=== PATIENT | female | born 1950 | race Caucasian/White ===

== ENCOUNTER 2017-12-01 10:57 | Outpatient (CLI) | payer MEDICARE | END 2017-12-01 10:58 | disposition home or self-care (01) | LOC: BICMAMMO 10:57 | PROVIDERS: ATTEND Physician Assistant | DX: Z12.31 Encounter for screening mammogram for malignant neoplasm of breast (principal); Z80.3 Family history of malignant neoplasm of breast | CPT/HCPCS: 77063; 77067 ==

== ENCOUNTER 2018-07-16 11:37 | Emergency (ER) | payer MEDICARE ==
--- NOTE | 2018-07-16 12:05 | RAD ---
FRONTAL RADIOGRAPH CHEST: Date; 07/16/18 COMPARISON: 02/10/13. HISTORY: Chest pain. FINDINGS: No pneumothorax or pleural fluid. No focal consolidation or alveolar edema. Heart and mediastinal con tours are grossly unremarkable. IMPRESSION: No acute findings. POS: [facility]
[2018-07-16 12:17] LABS: #Basophils 0.1 thou/uL (0.0-0.2); #Eosinphils 0.2 thou/uL (0.0-0.7); #Lymphocytes 2.5 thou/uL (1.20-3.40); #Monocytes 0.9 thou/uL (0.11-0.59); #Neutrophils 8.4 thou/uL (1.40-6.50); %Basophils 0.7 % (0.0-1.0); %Eosinophils 1.8 % (0.0-10.0); %Lymphocytes 20.8 % (21.0-51.0); %Neutrophils 69.7 % (42.0-75.0); Hemoglobin 14.4 g/dL (12.0-16.0); Mean Corpuscular HGB CONC 30.7 g/dL (32.0-36.0); Mean Corpuscular Hemoglobin 28.5 pg (27.0-31.0); Mean Corpuscular Volume 92.7 fL (78.0-98.0); Mean Platelet Volume 7.9 fL (7.4-10.4); Platelet Count 280 thou/uL (130-400); RBC Distribution Width 11.4 % (11.5-14.5); Red Blood Cell (RBC) Count 5.05 mill/uL (4.20-5.40); White Blood Cell (WBC) Count 12.1 thou/uL (4.8-10.8)
[2018-07-16 12:46] LABS: ALT (SGPT) 27 U/L (8-55); AST (SGOT) 21 U/L (5-34); Albumin 4.3 g/dL (3.4-4.8); Alkaline Phosphatase 89 U/L (40-150); Anion Gap 15 mmol/L (10-20); BUN (Urea Nitrogen) 16 mg/dL (9.8-20.1); Bilirubin, Total 1.1 mg/dL (0.2-1.2); Calc. Creatinine Clearance 0 mL/min (70-130); Calcium 10.1 mg/dL (7.8-10.44); Carbon Dioxide 23 mmol/L (23-31); Chloride 102 mmol/L (98-107); Estimated GFR-MDRD 75; Globulin 3.6 g/dL (2.4-3.5); Glucose 134 mg/dL (80-115); Potassium 3.9 mmol/L (3.5-5.1); Protein, Total 7.9 g/dL (6.0-8.3); Sodium 136 mmol/L (136-145)
--- NOTE | 2018-07-18 17:36 | EKG ---
Test Reason : CP Blood Pressure : / mmHG Vent. Rate : 075 BPM Atrial Rate : 075 BPM P-R Int : 144 ms QRS Dur : 072 ms QT Int : 372 ms P-R-T Axes : 038 036 067 degrees QTc Int : 415 ms Normal sinus rhythm Nonspecific T wave abnormality Abnormal ECG Confirmed by ALINE BOOKER, SHAYNA ([id number]), editorial manager MARCIAL HOWARD ([id number]) on 07/18/2018 5:35:49 PM Referred By: ALINE Confirmed By:SHAYNA MIRELES MD
--- NOTE | 2018-07-18 17:36 | EKG ---
Test Reason : Blood Pressure : / mmHG Vent. Rate : 083 BPM Atrial Rate : 083 BPM P-R Int : 156 ms QRS Dur : 074 ms QT Int : 362 ms P-R-T Axes : 035 012 039 degrees QTc Int : 425 ms Normal sinus rhythm Nonspecific T wave abnormality Abnormal ECG Confirmed by ALINE BOOKER, SHAYNA ([id number]), editor school photograph MARCIAL HOWARD ([id number]) on 07/18/2018 5:35:53 PM Referred By: Confirmed By:SHAYNA MIRELES MD
== END 2018-07-16 16:00 | disposition home or self-care (01) ==
LOC: ERS 11:37
DX: R07.89 Other chest pain (principal); R09.1 Pleurisy; R05 Cough; R73.03 Prediabetes; E03.9 Hypothyroidism, unspecified; K21.9 Gastro-esophageal reflux disease without esophagitis; E78.5 Hyperlipidemia, unspecified
CPT/HCPCS: 36415; 71045; 80053; 84484; 85025; 93005; 94640; J7620

== ENCOUNTER 2018-07-18 15:08 | Observation (INO) | payer MEDICARE ==
[2018-07-18 16:03] LABS: #Basophils 0.1 thou/uL (0.0-0.2); #Eosinphils 0.3 thou/uL (0.0-0.7); #Lymphocytes 2.5 thou/uL (1.20-3.40); #Monocytes 0.7 thou/uL (0.11-0.59); #Neutrophils 7.1 thou/uL (1.40-6.50); %Basophils 0.7 % (0.0-1.0); %Eosinophils 3.2 % (0.0-10.0); %Lymphocytes 23.1 % (21.0-51.0); %Monocytes 6.8 % (0.0-10.0); %Neutrophils 66.1 % (42.0-75.0); Mean Corpuscular HGB CONC 33.8 g/dL (32.0-36.0); Mean Corpuscular Hemoglobin 30.3 pg (27.0-31.0); Mean Corpuscular Volume 89.7 fL (78.0-98.0); Mean Platelet Volume 7.8 fL (7.4-10.4); Platelet Count 221 thou/uL (130-400); RBC Distribution Width 11.1 % (11.5-14.5); Red Blood Cell (RBC) Count 4.62 mill/uL (4.20-5.40); White Blood Cell (WBC) Count 10.7 thou/uL (4.8-10.8)
[2018-07-18 16:24] LABS: ALT (SGPT) 23 U/L (8-55); AST (SGOT) 21 U/L (5-34); Alkaline Phosphatase 74 U/L (40-150); Anion Gap 16 mmol/L (10-20); BUN (Urea Nitrogen) 14 mg/dL (9.8-20.1); Bilirubin, Total 0.8 mg/dL (0.2-1.2); CK (CPK) 123 U/L (29-168); Calc. Creatinine Clearance 0 mL/min (70-130); Calcium 9.4 mg/dL (7.8-10.44); Carbon Dioxide 21 mmol/L (23-31); Chloride 105 mmol/L (98-107); Estimated GFR-MDRD 80; Globulin 3.2 g/dL (2.4-3.5); Glucose 113 mg/dL (80-115); Potassium 3.8 mmol/L (3.5-5.1); Protein, Total 7.2 g/dL (6.0-8.3); Sodium 138 mmol/L (136-145)
--- NOTE | 2018-07-18 16:36 | RAD ---
TWO VIEWS CHEST: 07/18/18 PROVIDED CLINICAL HISTORY: Chest pain. FINDINGS: Comparison 08/13/2017. Cardiac and mediastinal silhouette is unchanged in appearance. Vascular calcification involves the ao rtic arch. No focal consolidation, pleural fluid or pneumothorax apparent. IMPRESSION: No evidence for an acute cardiopulmonary process. POS: [facility]
[2018-07-18] MEDS ORDERED: Aspirin Chewable 81 MG TAB ONE (16:57)
[2018-07-18] MEDS ORDERED: Nitroglycerin 2% Ointment 1 INCH/1 GM Packet ONE (16:57)
[2018-07-18] MEDS ORDERED: Ondansetron ODT 4 MG TAB SL PRN (17:00)
[2018-07-18] MEDS ORDERED: Acetaminophen 325 MG TAB PO PRN (17:00)
[2018-07-18] MEDS ORDERED: Ondansetron PF 4 MG/2 ML Vial IVP PRN (17:00)
[2018-07-18 19:18] LABS: Troponin I Less than 0.010 ng/mL (< 0.028)
[2018-07-18 19:22] VITALS: BMI 44.1
[2018-07-18] MEDS ORDERED: traMADol HCl 50 MG TAB PO PRN (21:12)
[2018-07-18] MEDS ORDERED: guaiFENesin 200 MG TAB PO PRN (21:19)
[2018-07-18 22:51] LABS: Troponin I Less than 0.010 ng/mL (< 0.028)
--- NOTE | 2018-07-19 02:06 | HP ---
CHIEF COMPLAINT: Left-sided chest pain. HISTORY OF PRESENT ILLNESS: Ms. Ramirez is a 67-year-old woman, who presents today complaining of left-sided chest pain which has been ongoing for the last 2 days. She states she was recently treated for bronchitis and has had a minor cough. Today, the pain began to radiate down her left arm and up the left side of her neck. She also describes a numbness in her upper left arm. 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 The patient is also describing numbness along the entire left lower extremity. She denies experiencing any weakness. Reports a mild throbbing headache which she rates 5/10 in severity. Denies having any injuries. She denies any history of underlying heart disease. REVIEW OF SYSTEMS: The patient denies having any recent fevers, chills, or sweats. She reports having a dry cough and denies any hemoptysis. Denies nausea or vomiting. Denies any abdominal pain or cramping. Has been moving her bowels as normal and denies any urinary symptoms. She has not experienced any episodes of dizziness. Has not had any speech disturbances or visual changes. No facial numbness or drooping. No difficulty swallowing. All other review of systems are negative. PAST MEDICAL HISTORY: 1. Hypothyroidism. 2. Hyperlipidemia. 3. Prediabetic. PAST SURGICAL HISTORY: 1. Previous left breast biopsy. 2. x2. 3. Hernia repair. SOCIAL HISTORY: Denies any alcohol use or tobacco use. Previous IV drug user, but no longer uses any type of drugs. ALLERGIES: 1. AZITHROMYCIN. 2. CODEINE SULFATE. CURRENT MEDICATIONS: 1. Calcium. 2. Centrum Silver. 3. Aspirin. 4. Albuterol. 5. Pravastatin. 6. Levothyroxine. PHYSICAL EXAMINATION: GENERAL: The patient appears well developed, well nourished, is in no acute distress. VITAL SIGNS: Temperature 97.7, pulse 69, respirations 20, O2 saturation 95% on room air, BP 162/74. HEENT: Normocephalic and atraumatic. Pupils are equal, round, and reactive to light. Sclerae are without icterus. Oropharynx is clear. NECK: Supple. No lymphadenopathy. LUNGS: Clear to auscultation bilaterally without any wheezes, rales, or rhonchi. CARDIAC: Regular rate and rhythm. Chest wall tenderness along the left lateral rib cage. ABDOMEN: Soft, nontender, nondistended. Normoactive bowel sounds present. EXTREMITIES: No edema. No calf tenderness. NEUROLOGIC: Alert and oriented x3. Facial movements intact and facial sensation normal. There is a reduced sensation along the left upper and lower extremities. Power 5/5 in upper and lower limbs. No neuro deficits on exam. SKIN: Without rash or jaundice. LABORATORY DATA: White blood count 10.7, hemoglobin 14.9, hematocrit 41.4, platelets 221. Sodium 138, potassium 3.8, BUN 14, creatinine 0.73, GFR 80, glucose 113, calcium 9.4, total bilirubin 0.8, AST 21, ALT 23, alkaline phosphatase 74. CK 123. Troponin negative x2. IMAGING DATA: Chest x-ray without any evidence of acute cardiopulmonary process. Vascular calcification involving aortic arch. IMPRESSION AND PLAN: Ms. Ramirez is a pleasant 67-year-old woman, presenting with left-sided chest pain, who is being admitted for management of the followin. Chest pain, rule out. The pain started earlier today, radiating down her left arm and up the left side of her neck. Troponin x2 negative. Awaiting third troponin. She does have some tenderness in the left shoulder. Chest pain discomfort relieves with heating pad. Echo requested. BNP also requested. The patient did experience associated shortness of breath. Her vital signs are notable for low sats of 95%. She has no underlying pulmonary disease. We will request a D-dimer. If positive, obtain CT angiogram of chest. 2. Left-sided numbness. The lower extremity numbness has developed since she has come in. She reports a throbbing headache, 5/10 severity, but no visual disturbances and no other focal neurology. We will obtain a CT brain. 3. Hypothyroidism. We will resume levothyroxine. We will check TSH. 4. GI prophylaxis. 5. DVT prophylaxis. 6. Full code status. The patient's case was discussed with Dr. Lopes who agrees with plan of care as described above. Job ID: [id number]
[2018-07-19 05:38] LABS: #Basophils 0.1 thou/uL (0.0-0.2); #Eosinphils 0.3 thou/uL (0.0-0.7); #Lymphocytes 2.6 thou/uL (1.20-3.40); #Monocytes 0.7 thou/uL (0.11-0.59); #Neutrophils 5.5 thou/uL (1.40-6.50); %Basophils 0.7 % (0.0-1.0); %Eosinophils 3.1 % (0.0-10.0); %Lymphocytes 28.6 % (21.0-51.0); %Monocytes 7.6 % (0.0-10.0); %Neutrophils 59.9 % (42.0-75.0); Hemoglobin 13.4 g/dL (12.0-16.0); Mean Corpuscular HGB CONC 34.4 g/dL (32.0-36.0); Mean Corpuscular Hemoglobin 30.9 pg (27.0-31.0); Mean Platelet Volume 8.1 fL (7.4-10.4); Platelet Count 219 thou/uL (130-400); RBC Distribution Width 11.1 % (11.5-14.5); Red Blood Cell (RBC) Count 4.32 mill/uL (4.20-5.40); White Blood Cell (WBC) Count 9.1 thou/uL (4.8-10.8)
[2018-07-19 05:59] LABS: Anion Gap 12 mmol/L (10-20); BUN (Urea Nitrogen) 15 mg/dL (9.8-20.1); Calc. Creatinine Clearance 120 mL/min (70-130); Calcium 9.5 mg/dL (7.8-10.44); Carbon Dioxide 27 mmol/L (23-31); Chloride 103 mmol/L (98-107); Estimated GFR-MDRD 78; Glucose 99 mg/dL (80-115); Potassium 3.8 mmol/L (3.5-5.1); Sodium 138 mmol/L (136-145)
[2018-07-19] MEDS ORDERED: Levothyroxine Sodium 125 MCG TAB PO SCH (09:00)
[2018-07-19] MEDS: Famotidine/PF 20 mg/2ml Vial SLOW IVP SCH ×2 (09:10→20:00)
[2018-07-19] MEDS: guaiFENesin ER 600 MG TAB PO SCH ×2 (09:10→20:00)
--- NOTE | 2018-07-19 09:33 | CT ---
HEAD CT WITHOUT CONTRAST: DATE: 07/18/2018. HISTORY: Left arm and left leg numbness. TECHNIQUE: Axial CT imaging at 5 mm intervals from the vertex through the skull base without contrast. FINDINGS: The imaged paranasal sinuses and mastoid air cells are well aerated. There is no displaced calvarial fracture. There is atherosclerotic calcification of the cavernous carotid arteries. No intracranial hemorrhage, midline shift, mass effect, or ventricular enlargement. If there is clin ical concern for acute infraction, brain MRI is advised. If there is concern for intra-arterial thro mbus, CT angiogram suggested. IMPRESSION: No acute findings - no intracranial hemorrhage. POS: [facility]
[2018-07-19] MEDS ORDERED: ADENOSINE 60 MG/20 ML VIAL ONE (11:16)
--- NOTE | 2018-07-19 14:38 | NM ---
NUCLEAR MEDICINE CARDIAC STRESS WITH EF AND WALL MOTION: HISTORY: Chest pain. Increased cholesterol. COMPARISON: None. TECHNIQUE: Stress only imaging is performed. The patient was administered 28.60 mCi of Technetium 99m sestamibi intravenously. FINDINGS: Homogeneous distribution of the radiotracer in the left ventricle. End-diastolic volume is 86 mL. End-systolic volume is 31 mL. CARDIAC GATING: Normal motion and thickening. 64% ejection fraction. IMPRESSION: 1. Homogeneous distribution of radiotracer. 2. A 64% ejection fraction. POS: [facility]
[2018-07-19 16:43] VITALS: TEMP 98.1
[2018-07-19] MEDS ORDERED: traMADol HCl 50 MG TAB PO SCH (17:45)
[2018-07-19] MEDS ORDERED: Lidocaine 5% Patch TD SCH (18:30)
[2018-07-19 20:19] VITALS: BP 140/68
[2018-07-19] MEDS ORDERED: Atorvastatin Calcium 10 MG TAB PO SCH (21:00)
[2018-07-19] MEDS ORDERED: Aspirin 81 mg Enteric Coated Tablet PO SCH (21:00)
--- NOTE | 2018-07-19 21:48 | DIS ---
DATE OF ADMISSION: 07/18/2018 DATE OF DISCHARGE: 07/19/2018 PRIMARY CARE PROVIDER: Emilia Bhatia. DISCHARGE DIAGNOSES: 1. Chest pain. 2. Likely musculoskeletal etiology for chest pain. CONDITION OF PATIENT ON THE DAY OF DISCHARGE: Stable. I assessed Ms. Ramirez on the day of discharge. She reports that she did not have any left-sided numbness, which she had complained about at the time of admission. She also reports that chest pain was better. Vital signs are stable. S1 and S2 are heard, regular. Lungs are clear to auscultation bilaterally. She has reproducible left chest wall pain. DISCHARGE MEDICATIONS: No change was made to her pre-admission home medications as dictated by Amina Marta on history and physical note dated July 19, 2018. HOSPITAL COURSE: Ms. Ramirez is a pleasant 67-year-old lady, who was admitted to [facility] on July 18, 2018. She complained of left-sided chest pain as well as left arm and left leg numbness. CT scan of the brain, noncontrast, did not show any acute findings. She had D-dimer that was less than 0.27. She also had nuclear stress test, which showed homogeneous distribution of radiotracer, with 64% left ventricular ejection fraction. She is advised to follow up with her primary care provider as outpatient for further management. LABORATORY DATA: On the day of discharge, Ms. Ramirez has white count 9100, hemoglobin 13.4, and platelet count 219,000. Normal electrolytes and normal creatinine. Her BNP during this admission was 20. She had troponin I that was negative x3. DISCHARGE DESTINATION: Home. Job ID: [id number]
[2018-07-20] MEDS ORDERED: Lidocaine Patch Removal 1 EACH TOP SCH (06:30)
== END 2018-07-19 20:15 | disposition home or self-care (01) ==
LOC: ERS 15:08 → 2SW 19:04
PROVIDERS: ADMIT Internal Medicine; ATTEND Internal Medicine
DX: R07.89 Other chest pain (principal); E03.9 Hypothyroidism, unspecified; E78.5 Hyperlipidemia, unspecified; R73.03 Prediabetes; Z79.82 Long term (current) use of aspirin; Z79.899 Other long term (current) drug therapy; Z88.1 Allergy status to other antibiotic agents; Z88.5 Allergy status to narcotic agent; Z88.8 Allergy status to other drugs, medicaments and biological substances
CPT/HCPCS: 70450; 71046; 78452; 80048; 80053; 82550; 83880; 84484 ×2; 85025 ×2; 85379; 93005; 93017; 93306; 96374; 96376; 97139; 99285; A9500; G0378 ×2; 36415; J0153; S0028

== ENCOUNTER 2018-12-02 09:42 | Outpatient (CLI) | payer MEDICARE ==
--- NOTE | 2018-12-02 10:28 | MMO ---
Bilateral MAMMO Bilat Screen [facility]DI[facility]PERLA. CLINICAL HISTORY: Patient is 68 years old and is seen for screening. The patient has no personal history of cancer. The patient has a history of left Excisional Biopsy at age 31 - benign. VIEWS: The views performed were: bilateral craniocaudal with tomosynthesis and bilateral mediolateral oblique with tomosynthesis. FILMS COMPARED: The present examination has been compared to prior imaging studies performed at [facility] on 11/04/2014, 12/08/2015, 11/27/2016 and 12/01/2017. MAMMOGRAM FINDINGS: There are scattered fibroglandular densities. There are no suspicious masses, suspicious calcifications, or new areas of architectural distortion. IMPRESSION: THERE IS NO MAMMOGRAPHIC EVIDENCE OF MALIGNANCY. A ROUTINE FOLLOW-UP MAMMOGRAM IN 1 YEAR IS RECOMMENDED. THE RESULTS OF THIS EXAM WERE SENT TO THE PATIENT. ACR BI-RADS Category 1 - Negative MAMMOGRAPHY NOTE: 1. A negative mammogram report should not delay a biopsy if a dominant of clinically suspicious mass is present. 2. Approximately 10% to 15% of breast cancers are not detected by mammography. 3. Adenosis and dense breasts may obscure an underlying neoplasm. Reported by: Saroj COMBS Electonically Signed: [id number]
== END 2018-12-02 09:43 | disposition home or self-care (01) ==
LOC: BICMAMMO 09:42
PROVIDERS: ATTEND Physician Assistant
DX: Z12.31 Encounter for screening mammogram for malignant neoplasm of breast (principal)
CPT/HCPCS: 77063; 77067

== ENCOUNTER 2020-01-14 10:13 | Outpatient (CLI) | payer MEDICARE ==
[~2020-01-14 10:13] MED LIST: Magnevist 469MG/ML 20 ML VIAL ONE
--- NOTE | 2020-01-14 11:55 | RAD ---
3 views of the left ankle: 01/14/2020 COMPARISON: None HISTORY: Pain and swelling, no history of injury FINDINGS: There is enthesophyte formation at the origin of the plantar aponeurosis. Mild dorsal degen erative change noted within the mid foot on the lateral view with adjacent mild dorsal soft tissue swelling. No acute fracture or dislocation. IMPRESSION: Dorsal soft tissue swelling and midfoot degenerative change with no acute fracture or dis location.
--- NOTE | 2020-01-14 12:04 | MRI ---
MR the lumbar spine with and without contrast: 01/14/2020 History: Back pain, right-sided radiculopathy, lifting injury COMPARISON: None. TECHNIQUE: Multiplanar multisequence MR images were obtained of lumbar spine with and without IV cont rast FINDINGS: On the basis of 5 lumbar type vertebral bodies, conus medullaris terminates at theL1 level. STIR imaging demonstrates no focal area of osseous marrow edema. T12-L1:Mild bilateral facet hypertrophy. Intervertebral disc height and signal intensity within leny l limits. No significant central canal or neural foraminal stenosis. L1-2:Disc desiccation with mild disc space narrowing. Mild bilateral facet hypertrophy. Mild disc bul ge with no central canal or neural foraminal stenosis. Old central L2 vertebral body fracture present with moderate loss of vertebral body height centrally. L2-3:Mild bilateral facet hypertrophy with disc space narrowing and disc desiccation. No central floresita l or neural foraminal stenosis. L3-4:Mild bilateral facet hypertrophy and hypertrophy of the ligamentum flavum with disc desiccation. Mild left neural foraminal stenosis. No central canal or right neural foraminal stenosis. L4-5:Bilateral facet hypertrophy and hypertrophy of the ligamentum flavum, right greater than left. T here is disc desiccation. No central canal stenosis. Questionable minimal right neural foraminal stenosis. No left neural foraminal stenosis. L5-S1:There is disc space narrowing with disc desiccation. Mild anterolisthesis measures 6 mm. Bilate ral L5 pars defects are present. There is associated bilateral facet hypertrophy, right greater than left. There is moderate right and mild left neural foraminal stenosis. No significant central ca nal stenosis. Image retroperitoneal structures demonstratea small T2 hyperintensity within the midpole of the left kidney, likely representing a small cyst. Postcontrast imaging demonstrates no abnormal enhancement involving the imaged osseous structures, th e intervertebral discs, or the contents of the thecal sac. IMPRESSION: Multilevel degenerative change within the lumbar spine as detailed above.
== END 2020-01-14 10:14 | disposition home or self-care (01) ==
LOC: BICMRI 10:13
PROVIDERS: ATTEND Physician Assistant
DX: M25.572 Pain in left ankle and joints of left foot (principal); M54.9 Dorsalgia, unspecified; M79.89 Other specified soft tissue disorders; M19.072 Primary osteoarthritis, left ankle and foot; M47.816 Spondylosis without myelopathy or radiculopathy, lumbar region
CPT/HCPCS: 72158; 82565; A9579

== ENCOUNTER 2020-01-19 13:12 | Observation (INO) | payer MEDICARE, OTHER ==
--- NOTE | 2020-01-19 13:41 | PDOC.HHP ---
Hospitalist HPI - History of Present Illness Chest pain History of Present Illness: PCP: Emilia Bhatia The patient is a 69-year-old female with a past medical history significant for hypertension, hyperlipidemia, diabetes type 2, smoking, GERD and hypothyroidism that presents to the emergency department as a transfer from [facility] for the above complaint. Patient reports developing chest pain this morning approximately 2 AM. Reports that it woke her up in her sleep. Located left chest radiating to the left upper extremity. Describes as chest pressure. No exacerbating or alleviating factors. Patient reports some associated shortness of breath. Denies recent cough or wheezing. No history of COPD/asthma. No history of DVT/PE. Denies any illicit drug use. Denies heart palpitations, lower extremity swelling, orthopnea. Denies abdominal pain, nausea, vomiting, diarrhea. Denies any urinary symptoms. Denies fever or any known sick contacts. [facility], EKG showed normal sinus rhythm with some T wave flattening, no ST elevations. Chest x-ray negative for any acute process. She was given full dose aspirin per EMS. She was given sublingual nitro x2 and Nitropaste with some relief of symptoms. She was also given a GI cocktail, morphine and Toradol. She was then transferred to the [facility] location. ED Course: VITAL SIGNS FriJan 19, 2020 13:18 COLT Quiroga Tammy BP: 104/61, MAP: 75, Pulse: 67, Resp: 14, Pain: 6, O2 sat: 95 on (Room Air), Time: 01/19/2020 13:18. Hospitalist ROS - Review of Systems Constitutional: denies: fever, chills Respiratory: reports: shortness of breath. denies: cough, SOB with excertion Cardiovascular: reports: chest pain. denies: palpitations, edema, light headedness Gastrointestinal: denies: nausea, vomiting, abdominal pain, diarrhea Genitourinary: denies: dysuria, hematuria Neurological: denies: weakness, incoordination, change in speech, confusion All other systems reviewed; all pertinent +/- noted in HPI/Subj - Medication Medications: aspirin oral FriJan 19, 2020 13:33 COLT Quiroga Tammy TABLET : Strength - 81 mg : ORAL Patient Dose: 81 mg Oral once a day. pravastatin FriJan 19, 2020 13:33 COLT Quiroga Tammy TABLET : Strength - 40 mg : ORAL Patient Dose: 40 mg Oral once a day. glimepiride FriJan 19, 2020 13:34 COLT Quiroga, Deneen tablet : Strength - 1 mg : ORAL Patient Dose: 1 mg Oral once a day. hydroCHLOROthiazide FriJan 19, 2020 13:34 COLT Quiroga, Deneen capsule : Strength - 12.5 mg : ORAL Patient Dose: 12.5 mg Oral once a day. omeprazole FriJan 19, 2020 13:35 COLT Quiroga, Deneen capsule,delayed release(DR/EC) : Strength - 20 mg : ORAL Patient Dose: 40 mg p.o. daily Levothyroxine 125 mcg p.o. every morning Allergies: Azithromycin, metformin, codeine sulfate,Symbicort Hospitalist History - Past Medical History Source: patient, RN notes reviewed Cardiac: reports: HTN, Hyperlipidemia Pulmonary: denies: COPD Gastrointestinal: reports: GERD Endocrine: reports: Diabetes (Type II, [id number]), Hypothyroidism - Past Surgical History Past Surgical History: reports: Breast Biopsy (Left), (X2), Hernia Repair - Family History Family History: reports: cerebrovascular accident (Father), diabetes mellitus (Sibling) - Social History Smoking Status: Never smoker (Quit 20 years ago) Tobacco Type: cigarettes Alcohol: reports: None Drugs: reports: none Living Situation: With Family Occupation: Retired Activity level: independent ambulation - Exam General Appearance: NAD, awake alert Eye: anicteric sclera ENT: normocephalic atraumatic Neck: supple, symmetric, no JVD Heart: RRR, no murmur, no gallops, no rubs, normal peripheral pulses Respiratory: CTAB, no wheezes, no rales, no ronchi, normal chest expansion, no tachypnea Gastrointestinal: soft, non-tender, normal bowel sounds, no bruit, no guarding, no rigidity Extremities: no cyanosis, no edema Skin: no rashes Neurological: no focal deficits Musculoskeletal: normal tone, normal strength Psychiatric: normal affect, A&O x 3 Hospitalist Results - Labs Lab results: Laboratory Tests 01/19/20 01/19/20 01/19/20 09:50 09:50 09:50 WBC 9.6 Hgb 13.7 Hct 43.4 Plt Count 223 Sodium 139 Potassium 4.0 BUN 17 Creatinine 0.75 Glucose 118 H Calcium 9.5 Total Bilirubin 0.8 AST 30 ALT 29 Alkaline Phosphatase 62 Creatine Kinase 139 Troponin I 0.011 Albumin 4.2 - EKG Interpretation EKG: [facility]: 12 lead EKG interpreted by Emergency Department Physician at time of study, 12 lead EKG shows normal sinus rhythm, Rate (beats per minute): 70, with no ectopics, Conduction normal, ST segments normal, T waves normal, Lawrence normal. - Radiology Interpretation Chest x-ray Status: report reviewed by me Additional Comment: no acute cardiopulmonary process. Hospitalist H&P A/P - Problem (1) Chest pain Code(s): R07.9 - CHEST PAIN, UNSPECIFIED Status: Acute (2) Hypertension Code(s): I10 - ESSENTIAL (PRIMARY) HYPERTENSION Status: Acute (3) Hyperlipidemia Code(s): E78.5 - HYPERLIPIDEMIA, UNSPECIFIED Status: Acute (4) DM type 2 (diabetes mellitus, type 2) Status: Acute (5) Hypothyroidism Code(s): E03.9 - HYPOTHYROIDISM, UNSPECIFIED Status: Acute (6) GERD (gastroesophageal reflux disease) Code(s): K21.9 - GASTRO-ESOPHAGEAL REFLUX DISEASE WITHOUT ESOPHAGITIS Status: Acute - Plan Plan: 69/F with cardiovascular risk factors presents as a transfer for chest pain. Admit to telemetry floor, observation status. Expected length of stay less than 2 midnights. EKG normal sinus rhythm, no ST elevation. CXR negative for acute process. Troponin 0.011 Given full dose aspirin, Nitropaste, nitro SL, morphine, GI cocktail, Toradol. #Chest pain Heart score 4. Wells PE score 0. Trend troponins, check TSH, FLP, mag, BNP, UA. Continue aspirin, Nitropaste and start high intensity statin. 08/15echo EF 60-65%, mild MR, TR 20NM MUSIC ARTIST unremarkable. N.p.o. midnight. NM MUSIC ARTIST in a.m. #Hypertension Patient presented normotensive. Takes HCTZ, will hold for now. Continue to monitor BP. #Hyperlipidemia Home dose is pravastatin 40 mg. Start high intensity statin. Check FLP. #DM type II Presented BG 115 Has allergy to metformin. Takes glimepiride 1 mg at home. Hold glimepiride for now. Start moderate ISS, AC/HS checks #Hypothyroidism Check TSH level. Restart home dose levothyroxine and 25 mg every morning. #GERD Home dose omeprazole 40 mg. Start Protonix 40 mg daily. SCDs for DVT prophylaxis. Protonix for GI prophylaxis. Full code. Discussed case with Dr. Wesley.
[2020-01-19] MEDS ORDERED: Nitroglycerin 0.4 MG TAB (25 Tab Bottle) SL PRN (14:04)
[2020-01-19] MEDS ORDERED: HumaLOG 300 UNITS/3 ML VIAL SC PRN ×2 (14:08)
[2020-01-19] MEDS ORDERED: Dextrose 5% in Water 1,000 ML IV PRN (14:08)
[2020-01-19] MEDS ORDERED: Dextrose 50% Abboject 50 ML SYRINGE SLOW IVP PRN (14:08)
[2020-01-19] MEDS ORDERED: Ondansetron ODT 4 MG TAB PO PRN (14:09)
[2020-01-19] MEDS ORDERED: Senokot S 8.6-50 MG TAB PO PRN (14:09)
[2020-01-19] MEDS ORDERED: Ondansetron PF 4 MG/2 ML Vial IVP PRN (14:09)
[2020-01-19] MEDS ORDERED: Acetaminophen 650 MG Suppository PR PRN (14:09)
[2020-01-19] MEDS ORDERED: Calcium Carbonate 500 MG ChewTAB PO PRN (14:09)
[2020-01-19] MEDS ORDERED: Acetaminophen 325 MG TAB PO PRN (14:09)
[2020-01-19] MEDS ORDERED: Sodium Chloride 0.9% 1,000 ML IV SCH (14:15)
[2020-01-19 14:49] LABS: Troponin I Less than 0.010 ng/mL (< 0.028)
[2020-01-19 17:01] VITALS: BMI 45.4
[2020-01-19] MEDS: Morphine 2 MG/ML VIAL SLOW IVP PRN (17:13)
[2020-01-19 17:18] LABS: Troponin I 0.016 ng/mL (< 0.028)
[2020-01-19] MEDS ORDERED: Atorvastatin Calcium 10 MG TAB PO SCH (21:00)
[2020-01-19] MEDS: Nitroglycerin 2% Ointment 1 INCH/1 GM Packet TOP SCH (23:59)
[2020-01-20] MEDS: Morphine 2 MG/ML VIAL SLOW IVP PRN ×2 (01:49→09:41)
[2020-01-20 04:15] LABS: Bilirubin Negative (Negative); Blood, Urine Negative (Negative); Clarity Clear (Clear); Glucose, Urine (Dipstick) Normal (Negative); Ketone, Urine Negative (Negative); Leukocyte Negative Leu/uL (Negative); Nitrite Negative (Negative); Protein, Urine (Dipstick) 10 mg/dL (Neg-Trace); RBC/HPF 0-3 HPF (0-3); Specific Gravity, Urine 1.033 (1.002-1.036); Urobilinogen Normal mg/dL (Less than 2); pH, Urine 5.5 (5.0-9.0)
[2020-01-20 04:25] LABS: Mucous/LPF Rare LPF (<2+); WBC/HPF 0-3 HPF (0-3); Yeast-Budding Rare HPF (None Seen)
[2020-01-20 04:26] LABS: Bacteria/HPF 1+ HPF (None Seen)
[2020-01-20] MEDS: Nitroglycerin 2% Ointment 1 INCH/1 GM Packet TOP SCH ×2 (05:02→15:27)
[2020-01-20 05:03] LABS: #Basophils 0.1 thou/uL (0.0-0.2); #Eosinphils 0.3 thou/uL (0.0-0.7); #Lymphocytes 2.6 thou/uL (1.20-3.40); #Monocytes 0.9 thou/uL (0.11-0.59); #Neutrophils 4.9 thou/uL (1.40-6.50); %Basophils 0.9 % (0.0-1.0); %Eosinophils 3.8 % (0.0-10.0); %Lymphocytes 29.4 % (21.0-51.0); %Monocytes 9.8 % (0.0-10.0); %Neutrophils 56.1 % (42.0-75.0); Hemoglobin 12.9 g/dL (12.0-16.0); Mean Corpuscular HGB CONC 33.2 g/dL (32.0-36.0); Mean Corpuscular Hemoglobin 30.6 pg (27.0-31.0); Mean Corpuscular Volume 92.3 fL (78.0-98.0); Mean Platelet Volume 8.3 fL (7.4-10.4); Platelet Count 182 thou/uL (130-400); RBC Distribution Width 11.2 % (11.5-14.5); Red Blood Cell (RBC) Count 4.19 mill/uL (4.20-5.40); White Blood Cell (WBC) Count 8.7 thou/uL (4.8-10.8)
[2020-01-20 05:29] LABS: Anion Gap 14 mmol/L (10-20); BUN (Urea Nitrogen) 23 mg/dL (9.8-20.1); Calc. Creatinine Clearance 125 mL/min (70-130); Calcium 8.8 mg/dL (7.8-10.44); Carbon Dioxide 24 mmol/L (23-31); Cardiac Risk 3.5 (Less than 4.5); Chloride 106 mmol/L (98-107); Cholesterol 169 mg/dl (< 200 Desired); Estimated GFR-MDRD 82; Glucose 115 mg/dL (80-115); HDL Cholesterol 48 mg/dL (>60 Neg Risk); LDL Cholesterol, Calculated 91 mg/dL; Potassium 4.2 mmol/L (3.5-5.1); Sodium 140 mmol/L (136-145); Triglycerides 152 mg/dL (Less than 150)
[2020-01-20] MEDS ORDERED: Levothyroxine Sodium 125 MCG TAB PO SCH (06:00)
[2020-01-20 08:37] VITALS: TEMP 98.7
[2020-01-20] MEDS ORDERED: Aspirin 81 mg Enteric Coated Tablet PO SCH (09:00)
[2020-01-20] MEDS ORDERED: Regadenoson 0.4 MG/5 ML SYRINGE ONE (09:18)
[2020-01-20 12:10] LABS: SARS-CoV-2 MS2 Positive; SARS-CoV-2 N Gene Negative; SARS-CoV-2 S Gene Negative; SARS-CoV-2 by NAA Not Detected (NotDetected); SARS-CoV-2 orf1ab Negative
--- NOTE | 2020-01-20 15:25 | NM ---
EXAM: NM Cardiac Stress W EF WF PROVIDED CLINICAL HISTORY: Chest pain COMPARISON: None FINDINGS: This examination was performed as a stress only myocardial perfusion study after the administration o f Lexiscan IV There is normal uptake of radiotracer seen within the left ventricular myocardium on the stress acqui sition. No significant focal defect is seen. Gated images demonstrate normal ventricular wall motion and wall thickening. Calculated left ventricular ejection fraction is 78%. IMPRESSION: 1. Normal uptake of radiotracer left ventricular myocardium without findings to suggest a significant area of ischemia. 2. Normal LV function with normal LVEF of 78%.
[2020-01-20 17:35] VITALS: BP 151/68
--- NOTE | 2020-01-21 07:33 | DIS ---
DATE OF ADMISSION: 01/19/2020 DATE OF DISCHARGE: 01/20/2020 DISCHARGE DIAGNOSES: 1. Chest pain, acute coronary syndrome ruled out. 2. Hypertension. 3. Hyperlipidemia. 4. Diabetes mellitus type 2. 5. Hypothyroidism. 6. Gastroesophageal reflux disease. DISCHARGE MEDICATIONS: Those are unchanged from the patient's home medicines. HISTORY OF PRESENT ILLNESS AND HOSPITAL COURSE: The patient is a 69-year-old female with past medical history of hypertension, hyperlipidemia, diabetes mellitus type 2, smoking, GERD, who presented to the emergency department with complaints of chest pain. The patient was placed in observation. Serial troponins were unremarkable. EKG did not show any ST elevations. A stress test was performed, which did not show any evidence of reversible ischemia. EF was estimated to be 78%. Job ID: [id number]
--- NOTE | 2020-01-23 13:06 | EKG ---
Test Reason : Blood Pressure : / mmHG Vent. Rate : 068 BPM Atrial Rate : 068 BPM P-R Int : 164 ms QRS Dur : 072 ms QT Int : 426 ms P-R-T Axes : 039 046 054 degrees QTc Int : 452 ms Normal sinus rhythm Nonspecific T wave abnormality Abnormal ECG Confirmed by MONTSERRAT ADAM MD ([id number]) on 01/23/2020 1:05:44 PM Referred By: NELL PARK Confirmed By:MONTSERRAT ADAM MD
== END 2020-01-20 19:18 | disposition home or self-care (01) ==
LOC: ERS 13:12 → 2SW 13:37
PROVIDERS: ADMIT Internal Medicine; ATTEND Internal Medicine
DX: R07.89 Other chest pain (principal); I10 Essential (primary) hypertension; E78.5 Hyperlipidemia, unspecified; E11.9 Type 2 diabetes mellitus without complications; E03.9 Hypothyroidism, unspecified; K21.9 Gastro-esophageal reflux disease without esophagitis; J44.9 Chronic obstructive pulmonary disease, unspecified; Z87.891 Personal history of nicotine dependence; Z79.82 Long term (current) use of aspirin; Z79.84 Long term (current) use of oral hypoglycemic drugs; Z79.899 Other long term (current) drug therapy; Z88.1 Allergy status to other antibiotic agents; Z88.5 Allergy status to narcotic agent; Z88.8 Allergy status to other drugs, medicaments and biological substances; Z20.828 Contact with and (suspected) exposure to other viral communicable diseases
CPT/HCPCS: 78452; 80048; 80061; 81001; 82962; 83735; 83880; 84443; 84484; 85025; 93005 ×2; 93017; 94760; 99285; A9500; J2270 ×2; U0003; 36415; 36416; 87635; 93010; 96374; 96376; G0378; J2785

== ENCOUNTER 2020-02-17 08:01 | Outpatient (CLI) | payer MEDICARE, OTHER ==
[2020-02-18 10:59] LABS: SARS-CoV-2 MS2 Positive; SARS-CoV-2 N Gene Negative; SARS-CoV-2 S Gene Negative; SARS-CoV-2 by NAA Not Detected (NotDetected); SARS-CoV-2 orf1ab Negative
== END 2020-02-17 08:02 | disposition home or self-care (01) ==
LOC: LABBT 08:01
PROVIDERS: ATTEND Internal Medicine
DX: Z20.828 Contact with and (suspected) exposure to other viral communicable diseases (principal)
CPT/HCPCS: 87635; U0003

== ENCOUNTER 2020-02-22 06:05 | Day surgery (SDC) | payer MEDICARE ==
[2020-02-21 13:32] VITALS: BMI 46.4
[2020-02-22] MEDS ORDERED: Lidocaine 1% PF 5 ML VIAL ONE (08:44)
[2020-02-22] MEDS ORDERED: PROPOFOL 200 MG/20 ML VIAL ONE (08:44)
--- NOTE | 2020-02-22 10:39 | OP ---
DATE OF PROCEDURE: 02/22/2020 PROCEDURES PERFORMED: Esophagogastroduodenoscopy with dilation and colonoscopy with polypectomy. INDICATION FOR PROCEDURE: Dysphagia, adenomatous polyps of the colon, and incomplete evacuation of bowels. DESCRIPTION OF PROCEDURE: After the risks and benefits of the procedures were explained to the patient including risks of bleeding, infection, perforation, reactions to anesthesia, aspiration, and/or pain, informed consent was obtained. The patient was then taken to the endoscopy suite, where she was maneuvered into the left lateral decubitus position, followed by introduction of deep sedation via propofol and anesthesia support. Once adequate sedation was achieved, the standard gastroscope was introduced into the mouth with intubation of the esophagus, stomach, and the proximal small intestines with the findings listed below. The patient tolerated this portion of the procedure well with no immediate perioperative complications. Upon completion of this portion of the procedure, all equipment was removed from the patient and the bed was rotated 180 degrees in anticipation of the colonoscopy. A digital rectal examination was performed followed by introduction of the standard colonoscope, which was advanced to the terminal ileum with some difficulty due to tortuosity of the colon and diverticular disease. The patient tolerated the procedure well with no immediate perioperative complications. On conclusion of the procedure, all equipment was removed from the patient and she was transferred to Day Stay in satisfactory condition. EGD FINDINGS: Esophagus: Normal-appearing mucosa was seen in the proximal and mid esophagus; however, a small esophageal stricture was seen in the distal esophagus at approximately 30 to 31 cm past the incisors. It was easily traversed with the standard gastroscope and there was no evidence of associated erosions, ulcerations, or mass lesions. Given her history of dysphagia, this stricture was then dilated to a maximum diameter of 18 mm using a TTS CRE esophageal balloon. A small mucosal rent was seen in the post dilation. No evidence of perforation. The diaphragmatic pinch was seen at 34 cm while the gastroesophageal junction was seen at 31 cm denoting a 3 cm hiatal hernia. Stomach: Slightly nodular mucosa was seen in the gastric cardia, fundus, body and extending into the greater curvature without any other associated abnormalities. Given the high likelihood that was of being due to PPI effect, no biopsies were taken. Otherwise, normal-appearing mucosa was seen in these regions in addition to the incisura and antrum. A hiatal hernia was seen on gastric retroflexion. Duodenum: Normal-appearing mucosa was seen in both the duodenal bulb and second portion of the duodenum. There was no evidence of erosions, ulcerations, mass lesions, or active/recent bleeding. IMPRESSION: 1. A 3 cm hiatal hernia in the distal esophagus. 2. Mild esophageal stricture seen at 31 cm, status post dilation to 18 mm. 3. Slightly nodular appearing mucosa seen in the proximal stomach consistent with PPI effect. COLONOSCOPY FINDINGS: Digital rectal exam: Large perianal skin tags/external hemorrhoids were seen on external examination. No masses were palpated nor was there any evidence of rectal bleeding. Colon findings: Normal-appearing mucosa was seen within the terminal ileum as well as at the ileocecal valve and appendiceal orifice. Normal-appearing mucosa was then also seen in the cecum; however, three polyps measuring 3 to 5 mm in size were seen in the ascending colon and completely removed with cold snare polypectomy. Two additional polyps, measuring 4 to 8 mm were seen in the transverse colon and removed completely with a combination of cold snare and hot snare polypectomies. They were retrieved and placed in a specimen jar for further evaluation. Scattered diverticula were seen in the ascending, transverse, descending, and sigmoid colons with no other associated abnormalities. Normal-appearing mucosa was then seen in the descending colon as well. However, mild luminal narrowing was seen in the sigmoid colon secondary to scar tissue deposition from diverticular disease. [id number] difficulty was experienced in traversing this region. A 3 mm polyp was then seen in the rectum and completely removed with cold snare polypectomy. It was retrieved and placed in a specimen jar for further evaluation. Small to medium-sized internal hemorrhoids were seen on rectal retroflexion. IMPRESSION: 1. Three 3 to 5 mm ascending colon polyp status post cold snare polypectomy. 2. Two 4 to 8 mm polyps seen in the transverse colon status post cold snare and hot snare polypectomy. 3. [id number] pancolonic diverticulosis. 4. Mild luminal narrowing of the sigmoid colon secondary to diverticulosis. 5. A 3 mm rectal polyp status post cold snare polypectomy. 6. Internal and external hemorrhoids. RECOMMENDATIONS: 1. Would follow up on the biopsy/polypectomy results with repeat colonoscopy interval based on pathology results. 2. Would place the patient on a higher fiber diet given the presence of hemorrhoids and diverticulosis. 3. Would continue current medications. 4. Would recommend a liquid diet for the next 24 hours, then advanced the diet as tolerated. 5. Would have the patient follow up in the GI clinic in 3 weeks as part of followup of her irregular bowel habits and dysphagia. Job ID: [id number]
== END 2020-02-22 10:40 | disposition home or self-care (01) ==
LOC: SDC 06:05
PROVIDERS: ATTEND Internal Medicine
PROC: 0D758ZZ Dilation of Esophagus, Via Natural or Artificial Opening Endoscopic (ICD-10-PCS; principal; 2020-02-22)
PROC: 0DBK8ZX Excision of Ascending Colon, Via Natural or Artificial Opening Endoscopic, Diagnostic (ICD-10-PCS; 2020-02-22)
PROC: 0DBL8ZX Excision of Transverse Colon, Via Natural or Artificial Opening Endoscopic, Diagnostic (ICD-10-PCS; 2020-02-22)
PROC: 0DBP8ZX Excision of Rectum, Via Natural or Artificial Opening Endoscopic, Diagnostic (ICD-10-PCS; 2020-02-22)
DX: K22.2 Esophageal obstruction (principal); D12.2 Benign neoplasm of ascending colon; D12.3 Benign neoplasm of transverse colon; K62.1 Rectal polyp; K44.9 Diaphragmatic hernia without obstruction or gangrene; K57.30 Diverticulosis of large intestine without perforation or abscess without bleeding; K64.4 Residual hemorrhoidal skin tags; K64.8 Other hemorrhoids; K21.00 Gastro-esophageal reflux disease with esophagitis, without bleeding; E11.9 Type 2 diabetes mellitus without complications; E78.00 Pure hypercholesterolemia, unspecified; E07.9 Disorder of thyroid, unspecified; E66.01 Morbid (severe) obesity due to excess calories; Z68.41 Body mass index [BMI] 40.0-44.9, adult; Z86.010 Personal history of colon polyps; Z87.891 Personal history of nicotine dependence; Z79.82 Long term (current) use of aspirin; Z79.84 Long term (current) use of oral hypoglycemic drugs; Z79.899 Other long term (current) drug therapy; Z88.1 Allergy status to other antibiotic agents; Z88.5 Allergy status to narcotic agent; Z88.8 Allergy status to other drugs, medicaments and biological substances; Z91.040 Latex allergy status
CPT/HCPCS: 88305; J2704

== ENCOUNTER 2021-01-09 13:04 | Observation (INO) | payer MEDICARE ==
[2021-01-09] MEDS ORDERED: Ondansetron ODT 4 MG TAB PO PRN (15:19)
[2021-01-09] MEDS ORDERED: Dextrose 5% in Water 1,000 ML IV PRN (15:19)
[2021-01-09] MEDS ORDERED: Nitroglycerin 0.4 MG TAB (25 Tab Bottle) SL PRN (15:19)
[2021-01-09] MEDS ORDERED: HumaLOG 300 UNITS/3 ML VIAL SC PRN ×2 (15:19→17:01)
[2021-01-09] MEDS ORDERED: Senokot S 8.6-50 MG TAB PO PRN (15:19)
[2021-01-09] MEDS ORDERED: Ondansetron PF 4 MG/2 ML Vial IVP PRN (15:19)
[2021-01-09] MEDS ORDERED: Dextrose 50% Abboject 50 ML SYRINGE SLOW IVP PRN (15:19)
[2021-01-09 15:34] VITALS: BMI 45.7
[2021-01-09] MEDS ORDERED: Acetaminophen 325 MG TAB PO PRN (17:01)
[2021-01-09] MEDS ORDERED: hydrALAZINE 20 MG/ML VIAL SLOW IVP PRN (20:07)
[2021-01-09] MEDS ORDERED: hydrALAZINE 25 MG TAB PO PRN (20:07)
[2021-01-09] MEDS ORDERED: Aspirin 325 MG TAB PO SCH (20:30)
[2021-01-09 20:54] LABS: Troponin I Less than 0.010 ng/mL (< 0.028)
[2021-01-09] MEDS ORDERED: Enoxaparin Sodium 40 MG/0.4 ML SYRINGE SC SCH (21:00)
[2021-01-09 23:34] LABS: Troponin I Less than 0.010 ng/mL (< 0.028)
[2021-01-10 05:00] LABS: #Basophils 0.1 thou/uL (0.0-0.2); #Eosinphils 0.3 thou/uL (0.0-0.7); #Lymphocytes 2.3 thou/uL (1.20-3.40); #Monocytes 0.8 thou/uL (0.11-0.59); #Neutrophils 4.8 thou/uL (1.40-6.50); %Basophils 0.9 % (0.0-1.0); %Eosinophils 3.9 % (0.0-10.0); %Lymphocytes 28.1 % (21.0-51.0); %Monocytes 9.2 % (0.0-10.0); Hemoglobin 13.3 g/dL (12.0-16.0); Mean Corpuscular HGB CONC 33.4 g/dL (32.0-36.0); Mean Corpuscular Hemoglobin 30.5 pg (27.0-31.0); Mean Corpuscular Volume 91.3 fL (78.0-98.0); Mean Platelet Volume 7.7 fL (7.4-10.4); Platelet Count 222 thou/uL (130-400); RBC Distribution Width 11.2 % (11.5-14.5); Red Blood Cell (RBC) Count 4.37 mill/uL (4.20-5.40); White Blood Cell (WBC) Count 8.3 thou/uL (4.8-10.8)
[2021-01-10 05:47] LABS: ALT (SGPT) 22 U/L (8-55); AST (SGOT) 22 U/L (5-34); Albumin 3.7 g/dL (3.4-4.8); Alkaline Phosphatase 45 U/L (40-110); Anion Gap 13 mmol/L (10-20); BUN (Urea Nitrogen) 15 mg/dL (9.8-20.1); Calc. Creatinine Clearance 110 mL/min (70-130); Calcium 9.6 mg/dL (7.8-10.44); Carbon Dioxide 27 mmol/L (23-31); Chloride 102 mmol/L (98-107); Globulin 2.6 g/dL (2.4-3.5); Glucose 111 mg/dL (80-115); Potassium 3.9 mmol/L (3.5-5.1); Protein, Total 6.3 g/dL (5.8-8.1); Sodium 138 mmol/L (136-145)
[2021-01-10] MEDS ORDERED: Nitroglycerin 2% Ointment 1 INCH/1 GM Packet TOP SCH (08:00)
[2021-01-10] MEDS ORDERED: Nitroglycerin 2% Ointment 1 INCH/1 GM Packet ONE (08:05)
[2021-01-10 08:08] LABS: Magnesium 1.5 mg/dL (1.6-2.6)
[2021-01-10] MEDS ORDERED: Electrolyte Replacement Protocol 1 EACH FS SCH (08:15)
[2021-01-10 08:30] LABS: SARS-CoV-2 PCR by NAA Not Detected (NotDetected)
[2021-01-10] MEDS ORDERED: Magnesium Sulfate 4 GM in Sodium Chloride 0.9% 250 ML 250 ML IVPB SCH (08:30)
[2021-01-10] MEDS ORDERED: Aspirin 81 mg Enteric Coated Tablet PO SCH (09:00)
[2021-01-10] MEDS ORDERED: Aspirin 325 mg Enteric Coated Tablet PO SCH (09:00)
[2021-01-10] MEDS ORDERED: Hydrochlorothiazide 25 MG TAB PO SCH (09:00)
[2021-01-10] MEDS ORDERED: Iopamidol 370 76% 100 ML VIAL ONE (09:27)
[2021-01-10 09:37] LABS: Troponin I Less than 0.010 ng/mL (< 0.028)
[2021-01-10] MEDS ORDERED: Communication Order-Pharmacy FS SCH (10:45)
[2021-01-10] MEDS ORDERED: Nitroglycerin 100MG/250ML BOT 250 ML ONE (11:17)
[2021-01-10] MEDS ORDERED: Verapamil 5 MG/2 ML VIAL ONE (11:17)
[2021-01-10] MEDS ORDERED: Heparin 10,000 UNITS/ 10 ML VIAL ONE (11:17)
[2021-01-10] MEDS ORDERED: Midazolam HCl 2 mg/2 ml Vial ONE (11:30)
[2021-01-10] MEDS ORDERED: Fentanyl 100 MCG/2 ML VIAL ONE (11:30)
[2021-01-10 11:50] LABS: Troponin I Less than 0.010 ng/mL (< 0.028)
[2021-01-10 11:53] LABS: Cardiac Risk 3.7 (Less than 4.5)
[2021-01-10] MEDS ORDERED: Nitroglycerin 0.4 MG TAB (25 Tab Bottle) SL PRN (13:16)
[2021-01-10] MEDS ORDERED: Sodium Chloride 0.9% 200 ML IV PRN (13:16)
[2021-01-10 16:40] VITALS: BP 127/62; TEMP 98
== END 2021-01-10 18:15 | disposition home or self-care (01) ==
LOC: 2NO 15:06
PROVIDERS: ADMIT Internal Medicine; ATTEND Internal Medicine
PROC: 4A023N7 Measurement of Cardiac Sampling and Pressure, Left Heart, Percutaneous Approach (ICD-10-PCS; principal; 2021-01-10)
PROC: B2111ZZ Fluoroscopy of Multiple Coronary Arteries using Low Osmolar Contrast (ICD-10-PCS; 2021-01-10)
DX: I25.10 Atherosclerotic heart disease of native coronary artery without angina pectoris (principal); R07.89 Other chest pain; R06.02 Shortness of breath; I10 Essential (primary) hypertension; E78.5 Hyperlipidemia, unspecified; E11.9 Type 2 diabetes mellitus without complications; E03.9 Hypothyroidism, unspecified; K21.9 Gastro-esophageal reflux disease without esophagitis; J44.9 Chronic obstructive pulmonary disease, unspecified; M25.552 Pain in left hip; E78.00 Pure hypercholesterolemia, unspecified; E66.01 Morbid (severe) obesity due to excess calories; Z68.42 Body mass index [BMI] 45.0-49.9, adult; Z87.891 Personal history of nicotine dependence; Z79.82 Long term (current) use of aspirin; Z79.84 Long term (current) use of oral hypoglycemic drugs; Z79.899 Other long term (current) drug therapy; Z88.1 Allergy status to other antibiotic agents; Z88.5 Allergy status to narcotic agent; Z88.8 Allergy status to other drugs, medicaments and biological substances; Z20.822 Contact with and (suspected) exposure to COVID-19
CPT/HCPCS: 80053; 80061; 82962 ×2; 83735; 84484 ×3; 85025; 93005; 93458; 94760; U0003; U0005; 36415; 36416; 93010; 96372; 96374; 99152; G0378; J1644; J1650; J2250; J3010; J3475; J7050; Q9967

== ENCOUNTER 2021-01-24 13:46 | Outpatient (CLI) | payer MEDICARE | END 2021-01-24 13:47 | disposition home or self-care (01) | LOC: BICULT 13:46 | PROVIDERS: ATTEND Registered Nurse | DX: M79.601 Pain in right arm (principal) ==

== ENCOUNTER 2022-01-15 09:27 | Outpatient (CLI) | payer MEDICARE | END 2022-01-15 09:28 | disposition home or self-care (01) | LOC: BICMAMMO 09:27 | PROVIDERS: ATTEND Physician Assistant | DX: Z12.31 Encounter for screening mammogram for malignant neoplasm of breast (principal); Z80.3 Family history of malignant neoplasm of breast; Z91.89 Other specified personal risk factors, not elsewhere classified | CPT/HCPCS: 77063; 77067 ==

== ENCOUNTER 2023-02-06 10:28 | Outpatient (CLI) | payer MEDICARE | END 2023-02-06 10:29 | disposition home or self-care (01) | LOC: BICMAMMO 10:28 | PROVIDERS: ATTEND Physician Assistant | DX: Z12.31 Encounter for screening mammogram for malignant neoplasm of breast (principal); Z80.3 Family history of malignant neoplasm of breast; Z91.89 Other specified personal risk factors, not elsewhere classified | CPT/HCPCS: 77063; 77067 ==

== ENCOUNTER 2023-02-14 06:00 | Day surgery (SDC) | payer MEDICARE ==
[2023-02-13 11:54] VITALS: BMI 45.0
[2023-02-14] MEDS ORDERED: Midazolam HCl 2 mg/2 ml Vial ONE (08:27)
[2023-02-14] MEDS ORDERED: PROPOFOL 200 MG/20 ML VIAL ONE (08:53)
== END 2023-02-14 10:27 | disposition home or self-care (01) ==
LOC: SDC 06:00
PROVIDERS: ATTEND Internal Medicine
PROC: 0DBK8ZZ Excision of Ascending Colon, Via Natural or Artificial Opening Endoscopic (ICD-10-PCS; principal; 2023-02-14)
PROC: 0DBL8ZZ Excision of Transverse Colon, Via Natural or Artificial Opening Endoscopic (ICD-10-PCS; 2023-02-14)
DX: D12.2 Benign neoplasm of ascending colon (principal); D12.3 Benign neoplasm of transverse colon; K64.4 Residual hemorrhoidal skin tags; K64.8 Other hemorrhoids; K57.30 Diverticulosis of large intestine without perforation or abscess without bleeding; K21.00 Gastro-esophageal reflux disease with esophagitis, without bleeding; E07.9 Disorder of thyroid, unspecified; E11.9 Type 2 diabetes mellitus without complications; E78.00 Pure hypercholesterolemia, unspecified; Z86.010 Personal history of colon polyps; Z87.891 Personal history of nicotine dependence; Z88.5 Allergy status to narcotic agent; Z91.040 Latex allergy status; Z79.84 Long term (current) use of oral hypoglycemic drugs; Z79.899 Other long term (current) drug therapy; Z79.890 Hormone replacement therapy
CPT/HCPCS: 88305; J2250; J2704

== ENCOUNTER 2024-01-30 08:51 | Outpatient (CLI) | payer MEDICARE | END 2024-01-30 08:52 | disposition home or self-care (01) | LOC: BICMAMMO 08:51 | PROVIDERS: ATTEND Physician Assistant | DX: N63.12 Unspecified lump in the right breast, upper inner quadrant (principal) | CPT/HCPCS: 76642; 77066; G0279 ==

== ENCOUNTER 2025-03-29 10:33 | Outpatient (CLI) | payer OTHER | END 2025-03-29 10:34 | disposition home or self-care (01) | LOC: BICMAMMO 10:33 | PROVIDERS: ATTEND Physician Assistant | DX: Z12.31 Encounter for screening mammogram for malignant neoplasm of breast (principal); Z80.3 Family history of malignant neoplasm of breast; Z91.89 Other specified personal risk factors, not elsewhere classified | CPT/HCPCS: 77063; 77067 ==